=== PATIENT | male | born 1960 | race American Indian/Alaskan Native ===

== ENCOUNTER 2018-02-24 06:02 | Day surgery (SDC) | payer SELFPAY ==
[2018-02-16 08:16] VITALS: BMI 20.9
[~2018-02-24 06:02] MED LIST: Ciprofloxacin 0.3% OPTH SOLN OS SCH; Cyclopentolate 1% Opth (2 ml) OS SCH; Flurbiprofen 0.03% Opht SOLN OS SCH; Lactated Ringer's 500 ML IV ONE; Phenylephrine 2.5% Opht Soln OS SCH; Tropicamide 1% Opht SOLUTION OS SCH
[2018-02-24] MEDS ORDERED: Lactated Ringer's 500 ML IV ONE (06:46)
[2018-02-24] MEDS ORDERED: Povidone Iodine Ophthalmic 5% Soln ONE (07:30)
[2018-02-24] MEDS ORDERED: Tetracaine 0.5% Ophth (OR ONLY) ONE (07:30)
[2018-02-24] MEDS ORDERED: Hyaluronidase Human, Recombi 150 U/ML VIAL ONE (07:32)
[2018-02-24] MEDS ORDERED: Lidocaine 2% MPF (5 ml) Inj ONE (07:39)
[2018-02-24] MEDS ORDERED: Midazolam 2 MG/2 ML VIAL ONE (07:58)
[2018-02-24] MEDS: Chondroitin/Hyaluronate Opth Syringe KIT (0.55 ml-0.5 ml) IO ONE ×2 (08:13→08:23)
[2018-02-24] MEDS: Carbachol 0.01% IO ONE ×3 (08:14→08:26)
[2018-02-24] MEDS: Tobramycin/Dexamethasone OPHT OINT ONE ×2 (08:15→08:35)
[2018-02-24 09:16] VITALS: O2SAT 100
[2018-02-24 09:29] VITALS: BP 128/80; PULSE 65; RESP 16; TEMP 97.9
--- NOTE | 2018-02-24 23:05 | OP ---
PROCEDURE DATE: 02/24/2018 PREOPERATIVE DIAGNOSIS: Mature cataract, left eye. POSTOPERATIVE DIAGNOSIS: Mature cataract, left eye. OPERATIVE PROCEDURE: Phacoemulsification, left eye, insertion of posterior chamber implants. SURGEON: Colin Echavarria MD ANESTHESIA TYPE: Local intravenous sedation. PROCEDURE: The patient was brought into the operating room, placed in supine position, prepped and draped in the usual fashion for ophthalmic surgery. Lid speculum was inserted, lids and exposing globe. A side-port incision was made superiorly and inferiorly with a disposable sharp blade. Anterior chamber was filled with Viscoat. A near clear corneal incision was made temporally with a 2.75-mm keratome. Capsulorrhexis was then performed with Utrata forceps. Hydrodissection carried out with balanced salt solution. Nucleus was phacoemulsified. Remaining cortical fragments were removed with a split irrigation and aspiration system. The capsular sac was filled with Provisc. A posterior chamber lens was then injected into the capsular sac and rotated into horizontal position. Provisc was aspirated out of the anterior chamber. The pupil was constricted with Miochol. The wound was found to be watertight. Topical Betadine, Timoptic, and TobraDex ointment and pressure patch were applied. The patient tolerated the procedure well. Colin Echavarria MD
== END 2018-02-24 09:54 | disposition home or self-care (01) ==
LOC: C.SDS 06:02
PROVIDERS: ATTEND Ophthalmology
DX: H25.092 Other age-related incipient cataract, left eye (principal); E11.9 Type 2 diabetes mellitus without complications
CPT/HCPCS: 66984; 82948; J2250; J3010; J3470; J7120

== ENCOUNTER 2018-04-07 05:57 | Day surgery (SDC) | payer OTHER, SELFPAY ==
[2018-02-16 08:15] VITALS: BMI 20.9
[2018-04-07] MEDS ORDERED: Ciprofloxacin 0.3% OPTH SOLN OD SCH ×3 (06:00→06:30)
[2018-04-07] MEDS ORDERED: Phenylephrine 2.5% Opht Soln OD SCH ×2 (06:00→06:30)
[2018-04-07] MEDS ORDERED: Flurbiprofen 0.03% Opht SOLN OD SCH ×2 (06:00→06:30)
[2018-04-07] MEDS ORDERED: Cyclopentolate 1% Opth (2 ml) OD SCH ×2 (06:00→06:30)
[2018-04-07] MEDS ORDERED: Tropicamide 1% Opht SOLUTION OD SCH ×2 (06:00→06:30)
[2018-04-07] MEDS ORDERED: Lactated Ringer's 500 ML IV ONE ×3 (06:00→08:40)
[2018-04-07] MEDS ORDERED: Tetracaine 0.5% Ophth (OR ONLY) ONE (07:24)
[2018-04-07] MEDS ORDERED: Tobramycin/Dexamethasone OPHT OINT ONE (07:24)
[2018-04-07] MEDS ORDERED: Carbachol 0.01% IO ONE (07:24)
[2018-04-07] MEDS ORDERED: Povidone Iodine Ophthalmic 5% Soln ONE (07:24)
[2018-04-07] MEDS ORDERED: Hyaluronidase Human, Recombi 150 U/ML VIAL ONE (07:25)
[2018-04-07] MEDS ORDERED: Chondroitin/Hyaluronate Opth Syringe KIT (0.55 ml-0.5 ml) IO ONE (07:25)
[2018-04-07] MEDS ORDERED: Lidocaine 2% MPF (5 ml) Inj ONE (07:27)
[2018-04-07] MEDS ORDERED: Midazolam 2 MG/2 ML VIAL ONE (07:45)
[2018-04-07 09:24] VITALS: RESP 16; O2SAT 99
[2018-04-07 12:36] VITALS: BP 147/83; PULSE 60; TEMP 97.8
--- NOTE | 2018-04-07 16:07 | OP ---
PROCEDURE DATE: 04/07/2018 PREOPERATIVE DIAGNOSIS: Matured cataract, right eye. POSTOPERATIVE DIAGNOSIS: Matured cataract, right eye. OPERATIVE PROCEDURE: Phacoemulsification, right eye, insertion of posterior chamber lens implant. SURGEON: Colin Echavarria MD ANESTHESIA TYPE: Local IV sedation. PROCEDURE: The patient was brought into the operating room, placed in supine position, prepped and draped in the usual fashion for ophthalmic surgery. Lid speculum was inserted, lids and exposing globe. A side-port incision was made superiorly and inferiorly with a disposable sharp blade. Anterior chamber was filled with Viscoat. A near clear corneal incision was made temporally with a 2.75-mm keratome. Capsulorrhexis was then performed with Utrata forceps. Hydrodissection carried out with balanced salt solution. Nucleus was phacoemulsified. Remaining cortical fragments were removed with a split irrigation and aspiration system. The capsular sac was filled with Provisc. A posterior chamber lens was then injected into the capsular sac and rotated into horizontal position. Provisc was aspirated out of the anterior chamber. The pupil was constricted with Miochol. The wound was found to be watertight. Topical Betadine, Timoptic, and TobraDex ointment and pressure patch were applied. The patient tolerated the procedure well. Colin Echavarria MD
== END 2018-04-07 09:51 | disposition home or self-care (01) ==
LOC: C.SDS 05:57
PROVIDERS: ATTEND Ophthalmology
DX: H25.091 Other age-related incipient cataract, right eye (principal)
CPT/HCPCS: 66984; 82948; J2250; J3010; J3470; J7120

== ENCOUNTER 2019-01-25 10:31 | Emergency (ER) | payer OTHER ==
[2019-01-25 10:31] VITALS: BMI 20.9
[2019-01-25] MEDS ORDERED: Sodium Chloride 0.9% 1,000 ML IV ONE ×2 (11:26→14:25)
[2019-01-25 11:42] LABS: BASO # 0.1 K/uL (0.0-0.2); BASO % 1.2 % (0.0-2.0); EOS % 0.6 % (0.0-4.0); HEMOGLOBIN 12.5 g/dL (12.0-18.0); LYMPH # 1.5 K/uL (1.0-4.3); LYMPH % 22.1 % (20.0-40.0); MEAN CELL VOLUME 90.9 fL (80.0-94.0); MEAN CORPUSCULAR HEMOGLOBIN 30.9 pg (27.0-31.0); MEAN PLATELET VOLUME 9.1 fL (7.2-11.7); MONO # 0.5 K/uL (0.0-0.8); MONO % 6.7 % (0.0-10.0); NEUT # 4.8 K/uL (1.8-7.0); NEUT % 69.4 % (50.0-75.0); RBC 4.05 Mil/uL (4.40-5.90); RED CELL DISTRIBUTION WIDTH 12.6 % (11.5-14.5); WHITE BLOOD COUNT 6.9 K/uL (4.8-10.8)
[2019-01-25 11:53] LABS: ALBUMIN 4.1 g/dL (3.5-5.0); ALT/SGPT 43 U/L (21-72); AST/SGOT 37 U/L (17-59); BLOOD UREA NITROGEN 15 mg/dL (9-20); CALCIUM 9.4 mg/dl (8.6-10.4); GFR NON-AFRICAN AMERICAN > 60
[2019-01-25 11:58] LABS: URINE AMORPHOUS SEDIMENT OCC /ul (<OCC); URINE BILIRUBIN NEGATIVE (NEGATIVE); URINE BLOOD NEGATIVE (NEGATIVE); URINE CLARITY Hazy (Clear); URINE COLOR Yellow (YELLOW); URINE GLUCOSE (UA) 3+ mg/dL (Normal); URINE LEUKOCYTE ESTERASE NEG Leu/uL (Negative); URINE PROTEIN 1+ mg/dL (NEGATIVE)
--- NOTE | 2019-01-25 12:50 | C.PDOC ---
History Of Present Illness 58 y/o male presents to the ER complaining of fever,chills, headache, runny nose, sneezing, and cough which began yesterday.Patient is also complaining of dysuria. Patient denies having CP,SOB, nausea, vomiting,abdominal pain, and di arrhea.Patient has PMhx of Type 2 Diabetes. Time Seen by Provider: 01/25/19 11:00 Chief Complaint (Nursing): Flu-like Symptoms History Per: Patient History/Exam Limitations: no limitations Onset/Duration Of Symptoms: Days Current Symptoms Are (Timing): Still Present Severity: Moderate Past Medical History Reviewed: Historical Data, Nursing Documentation, Vital Signs Vital Signs: Last Vital Signs Temp 98.4 F 01/25/19 10:43 Pulse 78 01/25/19 10:43 Resp 18 01/25/19 10:43 BP 153/88 H 01/25/19 10:43 Pulse Ox 100 01/25/19 10:43 Primary Care Provider: Clinic,Med Surg - Medical History PMH: Diabetes, HTN, Hypercholesterolemia Denies: Chronic Kidney Disease Other Surgeries: Hx of surgeries - [facility] Procedures COLONOSCOPY (08/23/14) Family History: States: No Known Family Hx - Social History Hx Tobacco Use: No Hx Alcohol Use: No Hx Substance Use: No - Immunization History Hx Tetanus Toxoid Vaccination: No Hx Influenza Vaccination: No Hx Pneumococcal Vaccination: No Review Of Systems Except As Marked, All Systems Reviewed And Found Negative. Constitutional: Positive for: Fever, Chills Respiratory: Positive for: Cough Gastrointestinal: Negative for: Nausea, Vomiting, Abdominal Pain, Diarrhea Genitourinary: Positive for: Dysuria. Negative for: Hematuria Neurological: Positive for: Headache Physical Exam - Physical Exam Appears: Non-toxic, No Acute Distress Skin: Normal Color, Warm, Dry Head: Atraumatic, Normacephalic Eye(s): bilateral: Normal Inspection Nose: Normal Oral Mucosa: Moist Neck: Supple Chest: Symmetrical Cardiovascular: Rhythm Regular Respiratory: Normal Breath Sounds, No Rales, No Rhonchi, No Wheezing Gastrointestinal/Abdominal: Normal Exam, Soft, No Tenderness, No Guarding, No R ebound Neurological/Psych: Oriented x3, Normal Speech ED Course And Treatment - Laboratory Results Result Diagrams: 01/25/19 11:33 01/25/19 16:10 Lab Results: Total Bilirubin 0.4 mg/dL (0.2-1.3) 01/25/19 11:33 AST 37 U/L (17-59) 01/25/19 11:33 ALT 43 U/L (21-72) 01/25/19 11:33 Alkaline Phosphatase 131 U/L (38-126) H D 01/25/19 11:33 Total Protein 8.2 g/dL (6.3-8.3) 01/25/19 11:33 Albumin 4.1 g/dL (3.5-5.0) 01/25/19 11:33 Globulin 4.1 gm/dL (2.2-3.9) H 01/25/19 11:33 Albumin/Globulin Ratio 1.0 (1.0-2.1) 01/25/19 11:33 Urine Color Yellow (YELLOW) 01/25/19 11:47 Urine Clarity Hazy (Clear) 01/25/19 11:47 Urine pH 7.0 (5.0-8.0) 01/25/19 11:47 Ur Specific Holcomb 1.018 (1.003-1.030) 01/25/19 11:47 Urine Protein 1+ mg/dL (NEGATIVE) H 01/25/19 11:47 Urine Glucose (UA) 3+ mg/dL (Normal) H 01/25/19 11:47 Urine Ketones Negative mg/dL (NEGATIVE) 01/25/19 11:47 Urine Blood Negative (NEGATIVE) 01/25/19 11:47 Urine Nitrate Negative (NEGATIVE) 01/25/19 11:47 Urine Bilirubin Negative (NEGATIVE) 01/25/19 11:47 Urine Urobilinogen 4.0 mg/dL (0.2-1.0) 01/25/19 11:47 Ur Leukocyte Esterase Neg Bryce/uL (Negative) 01/25/19 11:47 Urine WBC (Auto) 1 /hpf (0-5) 01/25/19 11:47 Urine RBC (Auto) 4 /hpf (0-3) H 01/25/19 11:47 Amorphous Sediment Occ /ul (<OCC) H 01/25/19 11:47 O2 Sat by Pulse Oximetry: 100 (RA) Pulse Ox Interpretation: Normal Progress Note: Labs,UA, and CXR ordered.Patient treated with IV Fluids. Disposition Counseled Patient/Family Regarding: Studies Performed, Diagnosis, Need For Followup, Rx Given - Disposition Referrals: [facility] [Outside] Disposition: HOME/ ROUTINE Disposition Time: 16:35 Condition: STABLE Additional Instructions: FOLLOW UP WITH YOUR DOCTOR/CLINIC IN 1-2 DAYS DRINK PLENTY OF FLUIDS USE MEDICATIONS NEEDED RETURN TO ER IF SYMPTOMS WORSEN Prescriptions: Benzonatate [Tessalon Perles] 100 mg PO BID PRN #15 sgl PRN Reason: Cough Ibuprofen [Motrin Tab] 600 mg PO Q6 PRN #30 tab PRN Reason: fever/pain Instructions: Viral Syndrome (DC) Forms: [employer] (Amharic) Print Language: CITIZEN OF [place] - Clinical Impression Clinical Impression: Viral syndrome - Scribe Statement The provider has reviewed the documentation as recorded by the Sunshine Lopez Provider Attestation: All medical record entries made by the Sunshine were at my direction and personally dictated by me. I have reviewed the chart and agree that the record accurately reflects my personal performance of the history, physical exam, medic al decision making, and the department course for this patient. I have also personally directed, reviewed, and agree with the discharge instructions and disposition.
--- NOTE | 2019-01-25 13:00 | RAD ---
HISTORY: COUGH COMPARISON: Chest x-ray performed 02/16/18 TECHNIQUE: Chest, one view. FINDINGS: LUNGS: Biapical pleural thickening. No focal consolidation. Please note that chest x-ray has limited sensitivity for the detection of pulmonary masses. PLEURA: No significant pleural effusion identified. No definite pneumothorax . CARDIOVASCULAR: Heart size appears within normal limits. Atherosclerotic calcifications present. OSSEOUS STRUCTURES: No acute osseous abnormality identified. VISUALIZED UPPER ABDOMEN: Unremarkable. OTHER FINDINGS: None. IMPRESSION: No focal consolidation.
[2019-01-25 14:16] LABS: VENOUS BLOOD GAS BASE EXCESS -8.5 mmol/L (0.0-2.0); VENOUS BLOOD GAS PCO2 36 mmHg (40-60); VENOUS BLOOD GAS PO2 29 mm/Hg (30-55); VENOUS BLOOD PH 7.29 (7.32-7.43)
[2019-01-25 16:30] LABS: ALBUMIN 3.7 g/dL (3.5-5.0); ALT/SGPT 43 U/L (21-72); AST/SGOT 30 U/L (17-59); BLOOD UREA NITROGEN 11 mg/dL (9-20); CALCIUM 8.8 mg/dl (8.6-10.4); GFR NON-AFRICAN AMERICAN > 60
[2019-01-25 17:41] VITALS: BP 137/78; PULSE 77; RESP 18; TEMP 97.7; O2SAT 98
== END 2019-01-25 17:00 | disposition home or self-care (01) ==
LOC: C.ER 10:31
DX: B34.9 Viral infection, unspecified (principal)
CPT/HCPCS: 36415; 71045; 80053; 81001; 82803; 82948; 85025; 87804; 96360; 96361; 99285; J7030